=== PATIENT | female | born 1990 | race Caucasian/White ===

== ENCOUNTER → 2021-02-14 | Outpatient (CLI) | payer BC, MEDICAID, OTHER | LOC: CARD 08:55 | PROVIDERS: ATTEND Internal Medicine Cardiovascular Disease | DX: R00.2 Palpitations (principal) | CPT/HCPCS: 93306 ==

== ENCOUNTER 2021-04-02 06:05 | Outpatient (CLI) | payer SELFPAY ==
[~2021-04-02] VITALS: Ht 162.6 cm; Wt 50.1 kg
[2021-04-02] MEDS ORDERED: MTP25TSR PO (10:45)
== END 2021-04-03 14:37 | disposition home or self-care (01) ==
LOC: PREOP 06:05
PROVIDERS: ATTEND Obstetrics & Gynecology
DX: Z01.818 Encounter for other preprocedural examination (principal)

== ENCOUNTER 2021-04-11 11:46 | Day surgery (SDC) | payer MEDICAID, OTHER ==
[2021-04-11] VITALS (9 sets, daily range): BP systolic 105–124; BP diastolic 55–87
[~2021-04-11] VITALS: Ht 162.6 cm; Wt 50.1 kg
[~2021-04-11 11:46] MED LIST: MTP25TSR PO
[2021-04-11] MEDS: LACTATED RINGERS 1,000 ML IV PRN ×2 (12:12→15:27)
[2021-04-11] MEDS ORDERED: ceFAZolin INJECTION 1,000 MG in WATER (STERILE) FOR INJECTION 10 ML IV ONE ×2 (12:15→14:30)
[2021-04-11 12:29] LABS: BASOPHILS % (AUTO) 1 % (0-10); EOSINOPHILS % (AUTO) 1 % (0-10); HEMATOCRIT 39 % (35-52); HEMOGLOBIN 13.4 g/dL (11.5-16.0); LYMPHOCYTES # (AUTO) 1.4 10^3/uL (1.0-4.0); LYMPHOCYTES % (AUTO) 33 % (12-44); MEAN CORPUSCULAR HEMOGLOBIN 32 pg (25-34); MEAN CORPUSCULAR HGB CONC 34 g/dL (32-36); MEAN CORPUSCULAR VOLUME 94 fL (80-99); MEAN PLATELET VOLUME 9.9 fL (9.0-12.2); MONOCYTES # (AUTO) 0.6 10^3/uL (0.0-1.0); MONOCYTES % (AUTO) 14 % (0-12); NEUTROPHILS # (AUTO) 2.1 10^3/uL (1.8-7.8); NEUTROPHILS % (AUTO) 50 % (42-75); PLATELET COUNT 196 10^3/uL (130-400); WHITE BLOOD COUNT 4.2 10^3/uL (4.3-11.0)
[2021-04-11] MEDS ORDERED: SEVOFLURANE (ULTANE) 15 ML INHAL SOLN ONE (13:34)
[2021-04-11] MEDS ORDERED: ONDANSETRON 4 MG/2 ML (SDV) Z0FRAN ONE (13:34)
[2021-04-11] MEDS ORDERED: MIDAZOLAM 2 MG/2 ML (VERSED) VIAL ONE (13:34)
[2021-04-11] MEDS ORDERED: fentaNYL INJ 100 MCG/2 ML AMP ONE (13:34)
[2021-04-11] MEDS ORDERED: LIDOCAINE PF 2% 5 ML (XYLOCAINE) VIAL ONE (13:34)
[2021-04-11] MEDS ORDERED: ONDANSETRON 4 MG/2 ML (SDV) Z0FRAN IVP PRN ×3 (14:15→16:15)
[2021-04-11] MEDS ORDERED: morphine INJ 10 MG/ML 1ML (SYR OR VIAL) IVP ONE ×2 (14:15→16:15)
[2021-04-11] MEDS ORDERED: fentaNYL INJ 100 MCG/2 ML AMP IVP ONE (14:15)
[2021-04-11] MEDS ORDERED: ceFAZolin INJECTION 1,000 MG ONE (14:27)
[2021-04-11] MEDS ORDERED: WATER (STERILE) FOR INJECTION 10 ML ONE (14:28)
[2021-04-11] MEDS ORDERED: LIDOCAINE/EPI 1%-1:100,000 (XYLOCAINE) 20ML ONE (14:47)
--- NOTE | 2021-04-11 15:05 | Progress Note-Pre Operative ---
Pre-Operative Progress Note H&P Reviewed The H&P was reviewed, patient examined and no changes noted. Date Seen by Provider: Apr 11, 2021 Time Seen by Provider: 15:04 Date H&P Reviewed: Apr 11, 2021 Time H&P Reviewed: 15:04 Pre-Operative Diagnosis: Labial pain/labial ulceration/superficial/insertional dyspareunia JAMIE PRADO MD Apr 11, 2021 15:04
--- NOTE | 2021-04-11 15:07 | Progress Note-Post Operative ---
Post-Operative Progess Note Surgeon (s)/Oceanography Professor (s) Surgeon JAMIE PRADO MD Oceanography Professor: none Pre-Operative Diagnosis Labial pain/labial ulceration/superficial/dyspareunia/Vulvar skin Lesions Post-Operative Diagnosis Same with pathology pending Procedure & Operative Findings Date of Procedure 04/11/21 Procedure Performed/Findings Bilateral partial vulvectomy With removal of numerous skin tags on the labia bilaterally Anesthesia Type GETA Estimated Blood Loss Estimated blood loss (mL): Minimal Specimens/Packing Specimens Removed Right and left partial labia minora Packing: None JAMIE PRADO MD Apr 11, 2021 15:07
[2021-04-11] MEDS ORDERED: D5 LR IV SOLUTION 1,000 ML IV SCH (15:15)
[2021-04-11] MEDS ORDERED: KETOROLAC 30 MG/ML VIAL IVP ONE (15:15)
[2021-04-11] MEDS ORDERED: oxyCODONE/APAP 5/325MG (PERCOCET 5) TABLET PO PRN (15:15)
[2021-04-11] MEDS ORDERED: fentaNYL INJ 100 MCG/2 ML AMP IVP PRN (15:15)
[2021-04-11] MEDS ORDERED: proPOfol 200 MG/20 ML (DIPRIVAN) VIAL IV ONE (15:41)
[2021-04-11] MEDS ORDERED: BENZ78AE5 TP (15:52)
[2021-04-11] MEDS ORDERED: OXYC1TAB87 PO (15:52)
[2021-04-11] MEDS ORDERED: IBUP-1780 PO (15:52)
--- NOTE | 2021-04-11 15:55 | Discharge Inst-Surgical ---
Discharge Inst-Surgical Depart Medication/Instructions New, Converted or Re-Newed RX: Transmitted to Pharmacy Consults/Follow Up Patient Instructions: As directed Orders & Referrals Follow Up Appt: Call to make follow up appt. for patient in 4 weeks. Activity: Rest for 24 hours, than as tolerated. Wound Care: Keep incisions clean and dry with female hygiene pad. Wash daily with soap and water. Diet: As tolerated-Clear Liquids only if nauseated. Tomorrow, may shower or tub bathe as desired. No driving for 24 hours, no alcoholic beverages for 24 hours, and nothing per vagina (no tampons, douching, or intercoarse) for 4 weeks. Patient to return to the clinic as soon as possible for: Temperature greater than 101F, Severe Pain, Foul discharge from incision or vagina, Excessive Bleeding (more than a period). Activity Activity as Tolerated: No Diet Discharge Diet: No Restrictions JAMIE PRADO MD Apr 11, 2021 15:55
--- NOTE | 2021-04-11 16:07 | Anesthesia-General Post-Op ---
General Patient Condition Mental Status/LOC: Same as Preop Cardiovascular: Satisfactory Nausea/Vomiting: Absent Respiratory: Satisfactory Pain: Controlled Complications: Absent Post Op Complications Complications None Follow Up Care/Instructions Patient Instructions None needed. Anesthesia/Patient Condition Patient Condition Patient is doing well, no complaints, stable vital signs, no apparent adverse anesthesia problems. LINO TRUJILLO DO Apr 11, 2021 16:07
--- NOTE | 2021-04-11 19:09 | OPERATIVE REPORT ---
DATE OF SERVICE: 04/11/2021 PREOPERATIVE DIAGNOSES: 1. Labial pain/labial laceration/dyspareunia. 2. Multiple pigmented skin lesions of the labia POSTOPERATIVE DIAGNOSES: 1. Labial pain/labial laceration/dyspareunia. 2. Multiple pigmented skin lesions of the labia OPERATIVE PROCEDURES: 1. Bilateral partial vulvectomy. 2. Removal of labial skin lesions. OPERATIVE DESCRIPTION: With the patient in supine position under satisfactory general anesthesia, she was repositioned in a dorsal lithotomy position in the Fidel stirrups and prepped and draped in the usual fashion for vaginal/labial surgery. The patient had numerous little exophytic lesions of the skin on both labia minora; approximately 12 of these were excised by just doing a shave biopsy to remove these lesions and then the defect was touched with silver nitrate to effect hemostasis. The labia majora were normal in appearance. The labia minora were prominent, tortuous, had numerous holes, numerous areas of perineal abrasion from the exposure and pressure and trauma of garments and activities. Approximately two thirds of each labia minora was resected leaving the labia minora slightly more prominent than the labia majora bilaterally. The area of intended incision was infiltrated with 1% lidocaine with epinephrine prior to incision on both sides. A total 10 mL of 1% lidocaine with epinephrine was used. Sharp dissection was then used to remove the redundant and somewhat ulcerated and scarred tissue up to the clitoral magallon and to the clitoral crura on the right and left, taking care not to remove portions of the clitoral crura or at the level of the clitoral magallon. The skin defect was then closed with a baseball stitch bilaterally to good hemostasis and good reapproximation. The area was irrigated and examined for hemostasis. There was some bleeding in the midportion of the left suture line. A [id number] suture of 3-0 Vicryl Rapide, which was the suture used in that closure, was used to effect hemostasis. With hemostasis assured, the patient was cleaned, undraped and PeriPad was applied and the patient was uneventfully awakened from her general anesthesia and transferred to recovery room in a stable condition with plans for discharge home [facility]. Job ID: [id number] DocumentID: [id number] Dictated Date: 04/11/2021 15:49:46 Model Engine Mechanic Date: 04/11/2021 19:08:36 Dictated By: JAMIE PRADO MD
== END 2021-04-11 17:20 ==
LOC: SDC 11:46
PROVIDERS: ATTEND Obstetrics & Gynecology
DX: S31.41XA Laceration without foreign body of vagina and vulva, initial encounter (principal); N76.2 Acute vulvitis; R10.2 Pelvic and perineal pain; N94.10 Unspecified dyspareunia; N76.6 Ulceration of vulva; L98.7 Excessive and redundant skin and subcutaneous tissue; Z79.899 Other long term (current) drug therapy; Z86.79 Personal history of other diseases of the circulatory system; Z83.3 Family history of diabetes mellitus
CPT/HCPCS: 36415; 84703; 85025; 87081; 88309